=== PATIENT | male | born 1995 | race African-American/Black ===

== ENCOUNTER 2016-06-13 20:31 | Emergency (ER) | payer MEDICAID ==
[~2016-06-13] VITALS: Ht 180.3 cm; Wt 71.3 kg
[2016-06-13 22:07] VITALS: BP 139/70
[2016-06-13] MEDS ORDERED: diphenhdrAMINE HCL 25 MG CAP PO ONE (22:15)
== END 2016-06-13 22:53 | disposition home or self-care (01) ==
LOC: ER 20:32
DX: L42 Pityriasis rosea (principal); Z88.6 Allergy status to analgesic agent

== ENCOUNTER 2019-01-30 14:46 | Emergency (ER) | payer MEDICAID ==
[~2019-01-30] VITALS: Ht 180.3 cm; Wt 77.1 kg
[2019-01-30 16:11] VITALS: BP 123/75
== END 2019-01-30 16:38 ==
LOC: ER 14:46
DX: Z02.89 Encounter for other administrative examinations (principal); J45.909 Unspecified asthma, uncomplicated; Z88.6 Allergy status to analgesic agent; V43.52XA Car driver injured in collision with other type car in traffic accident, initial encounter; Y93.89 Activity, other specified; Y99.8 Other external cause status; Y92.410 Unspecified street and highway as the place of occurrence of the external cause